=== PATIENT | female | born 1970 | race Caucasian/White ===

== ENCOUNTER → 2024-12-11 | Outpatient (CLI) | payer BC ==
--- NOTE | 2024-12-11 11:21 | XR ---
EXAMINATION TYPE: XR KUB DATE OF EXAM: 12/11/2024 COMPARISON: KUB radiograph 12/22/2014 HISTORY: N20.0 calculus TECHNIQUE: Single supine KUB image of the abdomen is obtained FINDINGS: Small bowel demonstrates no evidence for dilatation or air fluid levels. Gas and fecal material is seen in non-distended colon. No convincing evidence for pneumoperitoneum. No discrete renal or ureteral calculus identified. The lung bases are clear. The osseous structures are intact. IMPRESSION: 1. Overall nonobstructive bowel gas pattern. 2. No discrete renal or ureteral calculus identified. [facility], , 12/11/2024 11:19 AM
== END | disposition home or self-care (01) ==
LOC: RADXRMAIN 10:31
PROVIDERS: ATTEND Urology
DX: N20.0 Calculus of kidney (principal)
CPT/HCPCS: 74018